=== PATIENT | female | born 1980 | race Two or more races ===

== ENCOUNTER 2018-02-23 22:29 | Emergency (ER) | payer SELFPAY ==
[~2018-02-23] VITALS: Ht 144.8 cm; Wt 50.3 kg
[2018-02-24 00:49] VITALS: BP 105/76
== END 2018-02-24 00:49 | disposition home or self-care (01) ==
LOC: ED 22:29
DX: R06.02 Shortness of breath (principal); R11.0 Nausea; R50.9 Fever, unspecified; R10.9 Unspecified abdominal pain
CPT/HCPCS: Q0162

== ENCOUNTER 2019-03-30 17:25 | Emergency (ER) | payer SELFPAY ==
[~2019-03-30] VITALS: Ht 149.9 cm; Wt 53.1 kg
[2019-03-30 17:34] VITALS: Ht 149.9 cm; Wt 53.1 kg
[2019-03-30 18:33] LABS: BASOPHIL % 0.5 % (0-2); PLATELET COUNT 358 x10^3mcL (130-400); RED CELL DISTRIBUTION WIDTH 13.8 % (11.5-14.5)
[2019-03-30 18:33] LABS: microscopic required? YES; urine erythrocyte 3+ (NEGATIVE)
[2019-03-30 19:20] VITALS: BP 115/72
== END 2019-03-30 19:50 | disposition home or self-care (01) ==
LOC: ED 17:25
PROVIDERS: Emergency Medicine
DX: O03.4 Incomplete spontaneous abortion without complication (principal); Z90.89 Acquired absence of other organs
CPT/HCPCS: 36415

== ENCOUNTER 2019-05-15 13:14 | Emergency (ER) | payer SELFPAY ==
[~2019-05-15] VITALS: Ht 149.9 cm; Wt 52.2 kg
[2019-05-15 13:23] VITALS: Ht 149.9 cm; Wt 52.2 kg
[2019-05-15 14:07] LABS: BASOPHIL % 0.7 % (0-2); PLATELET COUNT 373 x10^3mcL (130-400); RED CELL DISTRIBUTION WIDTH 14.4 % (11.5-14.5)
[2019-05-15 14:33] LABS: ALBUMIN 3.7 g/dL (3.4-5.0); ALKALINE PHOSPHATASE 50 U/L (46-116); ALT/SGPT 28 U/L (14-59); AST/SGOT 18 U/L (15-37); BILIRUBIN TOTAL 0.6 mg/dL (0.20-1.00); CALCIUM 8.7 mg/dL (8.5-10.1); CARBON DIOXIDE 23.4 mmol/L (21-32); CHLORIDE SERUM 105 mmol/L (98-107); CREATININE SERUM 0.7 mg/dL (0.6-1.0); GFR1 > 60 mL/min; GLUCOSE SERUM 89 mg/dL (74-106); POTASSIUM SERUM 4.2 mmol/L (3.5-5.1); SODIUM SERUM 142 mmol/L (136-145); TOTAL PROTEIN, SERUM 8.3 g/dL (6.4-8.2)
[2019-05-15 15:23] VITALS: BP 110/65
== END 2019-05-15 15:23 | disposition home or self-care (01) ==
LOC: ED 13:14
PROVIDERS: Emergency Medicine
DX: B34.9 Viral infection, unspecified (principal); J40 Bronchitis, not specified as acute or chronic
CPT/HCPCS: 36415